=== PATIENT | male | born 1955 | race Caucasian/White ===

== ENCOUNTER 2017-08-16 10:03 | Outpatient (CLI) | payer OTHER | END 2017-08-16 10:04 | disposition home or self-care (01) | LOC: SC 10:03 | PROVIDERS: ATTEND Nurse Practitioner Family | DX: G47.33 Obstructive sleep apnea (adult) (pediatric) (principal) | CPT/HCPCS: 99212; 99214 ==

== ENCOUNTER 2017-11-22 13:33 | Outpatient (CLI) | payer OTHER | END 2017-11-22 13:34 | disposition home or self-care (01) | LOC: SC 13:33 | PROVIDERS: ATTEND Nurse Practitioner Family | DX: G47.33 Obstructive sleep apnea (adult) (pediatric) (principal) | CPT/HCPCS: 99212; 99214 ==

== ENCOUNTER 2023-09-02 10:53 | Outpatient (CLI) | payer OTHER ==
--- NOTE | 2023-09-02 11:37 | Sleep Patient Instructions ---
Sleep Center Visit Summary - Patient Visit Information Reason for Visit: Initial consultation - Patient Instructions Additional Instructions: You will continue with CPAP therapy with pressure set at 7 cmH2O. A supply prescription will be updated with your DME. We will have you do a sleep study if required by insurance. We encourage you to continue to try to lose weight. Please follow up with the sleep care office in 1 year. - Clinic Information Contact: [facility] [address] [place] [address] [email or web address] T: [phone]
--- NOTE | 2023-09-02 11:46 | SLEEP CARE CONSULTATION ---
Information from patient questionnaire entered by Anastasiya Ward. I have reviewed and concur with the information entered by Anastasiya Ward. This document represents the service I personally performed and the decisions made by me, Dior Gaviria ARNP. History of Present Illness Service Date and Time: 09/02/2023 1053 Reason for Visit: New patient, Previously diagnosed sleep apnea, Re-establish care Chief Complaint: reports: Other (UPDATE SUPPLIES) Date of Onset: 14YRS Usual bedtime: 2300 Time it takes to fall asleep: 5MINS Snores at night: Yes Observed to quit breathing while asleep: Yes Sleeps alone due to snoring: No Number of times waking at night: 2-3 Reasons for waking at night: reports: Bathroom Toss, Turn, or Twitch while sleeping: No Recalls having dreams: No Usually gets out of bed at: 5784-8374 Feels refreshed in the morning: Yes Morning headache: No Sleepy or fatigued during the day: No Ever fallen asleep while driving: No Takes day naps: No Dreams during day naps: No Prior sleep studies: Yes Additional HPI information: NIGHAT BUTT was last seen in 2017 and previously diagnosed in March 2008 to have moderate, AHI 16.5, obstructive sleep apnea-hypopnea syndrome and comes in today to re-establish care for CPAP therapy. He has been consistently using his CPAP with good compliance. He retired and changing to Medicare and the [employer] for his health needs. He needs an update of supply prescription and check up on his CPAP therapy. - Parasomnia Symptoms Ever been unable to move upon waking from sleep: No Walks in sleep: No Talks in sleep: No Ever acted out dreams in sleep: No Ever felt weak in the knees when startled or emotional: No Bothered by creepy, crawly, restless sensations in legs: No Problems with memory or concentration: No CPAP Compliance Data - Data Reviewed with Patient Average duration of nightly device use: 6 hours 5 mins Compliance rate %: 87.8 (83/90 days used) Current pressure setting (cmH2O): 7 Average residual AHI: 3.1 Central apnea: 0.1 Obstructive apnea: 1 Hypopnea: 2 Average large leak: 1 mins 26 secs Compliance data discussion: He has a Dreamstation 2 that was a replacement for the recalled device he had. [facility] He is using a nasal cushion mask. Subjective Missed days of use due to: reports: other (not sleeping in own bed when granddaughter visiting) Patient concerns: denies: aerophagia, mask discomfort, air blowing in eyes, mask leak noise, condensation in mask/hose, nasal congestion, dry mouth, nose, throat, epistaxis Observed to snore while using device: No Current pressure setting perceived as: comfortable On therapy, patient: reports: sleeping better, awakening more refreshed, being more awake and alert during the day, more rested overall. denies: drowsiness while driving Initial Honeydew Sleepiness Scale score: 7 (09/02/23) Past Medical History Past Medical History: reports: Hypertension, Arthritis, Asthma, Other (COPD) Social History The patient's occupation is a RE. Patient is and lives in [place]. Have you smoked in the past 12 months: No Alcohol use: Yes Alcohol amount and frequency: 2-3 BEERS WEEK Caffeine use: Yes Caffeine amount and frequency: 2-3 CUPS MORNING DAILY Family History Family history of sleep disordered breathing: Yes Family Hx Sleep Apnea: Father: Snoring, Sleep apnea - Untreated Allergies and Home Medications Known drug allergies: No Drug allergies reviewed: Yes Home medication list reviewed: Yes (as listed) Allergy and home medication list: Allergies No Known Drug Allergies Allergy (Verified 09/02/23 10:56) Home Medications Albuterol Sulfate See Rx Instructions .ROUTE .COMPLEX 09/02/23 [History] Cholecalciferol (Vitamin D3) [Vitamin D3] See Rx Instructions .ROUTE .COMPLEX 09/02/23 [History] Garlic See Rx Instructions .ROUTE .COMPLEX 09/02/23 [History] Lisinopril [Zestril] See Rx Instructions .ROUTE .COMPLEX 09/02/23 [History] Victor-3/Dha/Epa/Fish Oil [Fish Oil 1,000 mg Softgel] See Rx Instructions .ROUTE .COMPLEX 09/02/23 [History] Phytonadione (Vit K1) [Vitamin K] See Rx Instructions .ROUTE .COMPLEX 09/02/23 [History] Review of Systems Weight gain over past 5 years: 15 Cardiovascular: reports: high blood pressure Respiratory: reports: shortness of breath, wheeze Gastrointestinal: reports: heartburn Urinary: reports: frequency, urgency, impotence Ear/Nose/Throat: reports: sinus problems, tonsillectomy Musculoskeletal: reports: joint pain Immunologic: reports: sneezing Physical Exam Vital signs obtained and entered by: ANASTASIYA Mckeon MA Blood Pressure: 118/75 (RIGHT ARM) Cuff size: regular Heart Rate: 75 O2 Saturation: 97 Height: 5 ft 5 in Weight: 237 lb 12.8 oz Body Mass Index: 39.5 BMI Classification: Obese Neck circumference: 18.25 Heart: regular rate and rhythm Lungs: clear bilaterally Impression and Plan 1. Obstructive Sleep Apnea-Hypopnea Syndrome, moderate, with good treatment compliance and good apnea control. On CPAP therapy, the patient has better sleep quality and is more rested overall. He has significant improvement of his sleep apnea and is satisfied with current CPAP therapy. He may need a re-verifying diagnositic PSG if insurance requires it because his last sleep study was done back in 2007. He is willing to do the PSG if needed. I will update his supply prescription so he can obtain supplies as needed. Patient denies problems with oral dryness, nasal congestion, epistaxis, skin irritation or aerophagia. Patient's apnea severity and rationale for treatment to reduce apnea, improve sleep quality and reduce cardiovascular and cerebrovascular events was reviewed. I also reviewed the benefit of consistent device use of CPAP for hypertension and COPD. 2. Obesity, unspecified. Currently patients BMI is 39.5. Obesity increases the risk of apnea, CPAP pressure requirements and overall health risks especially cardiovascular and diabetes. Thus patient is advised to lose weight. * Continue auto CPAP pressure at 7 cmH2O * Update supply prescription * Verifying PSG if needed by insurance * Notify me if snoring with mask or feeling that the pressure is too much or too little * Attempt to lose weight * Call this office if any problems using CPAP * Return for follow up in 12 months (after study if needed), or sooner if concerns arise Counseling Topics: Spare mask, Weight loss health impact Prescriptions: Device supplies Follow up with Sleep Care in: 1 year Visit Type: In Office Time Spent with Patient (minutes): 36 Provider Statement: I spent 100% of the Face to Face Visit with the patient with greater than 50% spent counseling the patient and coordination of care.
[2023-09-02 11:51] VITALS: BP 118/75; O2SAT 97
== END 2023-09-02 10:54 | disposition home or self-care (01) ==
LOC: SC 10:53
PROVIDERS: ATTEND Nurse Practitioner Family
DX: G47.33 Obstructive sleep apnea (adult) (pediatric) (principal); I10 Essential (primary) hypertension
CPT/HCPCS: 99203; 99212

== ENCOUNTER 2023-12-17 08:00 | Outpatient (CLI) | payer MEDICARE, OTHER | END 2023-12-17 23:59 | disposition home or self-care (01) | LOC: LAB.N 08:00 | PROVIDERS: ATTEND Physician Assistant Medical | DX: N39.0 Urinary tract infection, site not specified (principal) | CPT/HCPCS: 87086; 87181 ==

== ENCOUNTER 2023-12-23 08:00 | Outpatient (CLI) | payer MEDICARE, OTHER ==
[2023-12-23 18:53] LABS: BILIRUBIN,URINE NEGATIVE (NEGATIVE); GLUCOSE, URINE (UA) NEGATIVE (NEGATIVE); KETONES,URINE (UA) NEGATIVE (NEGATIVE); LEUKOCYTE ESTERASE, URINE NEGATIVE (NEGATIVE); NITRITE,URINE NEGATIVE (NEGATIVE); OCCULT BLOOD,URINE NEGATIVE (NEGATIVE); PH,URINE 5.5 PH (5.0-7.5); PROTEIN,URINE NEGATIVE (NEGATIVE); UROBILINOGEN,URINE 0.2 (NORMAL) E.U./dL (NORMAL)
[2023-12-23 19:47] LABS: BACTERIA,URINE None Seen /HPF (None Seen); CLARITY,URINE CLEAR (CLEAR); RBC,URINE None Seen /HPF (0-5); SQUAMOUS EPITHELIAL CELL,UR RARE Squamous (<= Few); STARCH,URINE PRESENT; WBC,URINE 0-3 /HPF (0-3)
== END 2023-12-23 23:59 | disposition home or self-care (01) ==
LOC: LAB.WCP 08:00
PROVIDERS: ATTEND Family Medicine
DX: N39.0 Urinary tract infection, site not specified (principal)
CPT/HCPCS: 81001; 87086

== ENCOUNTER 2024-01-03 08:00 | Outpatient (CLI) | payer MEDICARE, OTHER | END 2024-01-03 23:59 | disposition home or self-care (01) | LOC: LAB.N 08:00 | PROVIDERS: ATTEND Nurse Practitioner | DX: R35.0 Frequency of micturition (principal) | CPT/HCPCS: 87086 ==

== ENCOUNTER 2024-01-04 09:16 | Outpatient (CLI) | payer MEDICARE, OTHER ==
[2024-01-04 18:25] LABS: BASOPHILS % (AUTO) 0.3 %; EOSINOPHILS % (AUTO) 0.6 %; HCT - HEMATOCRIT 39.4 % (42.0-52.0); HGB - HEMOGLOBIN 12.7 g/dL (14.0-18.0); LYMPHOCYTES % (AUTO) 9.3 %; MEAN CORPUSCULAR HEMOGLOBIN 30.8 pg (27.0-31.0); MEAN CORPUSCULAR HGB CONC 32.2 g/dL (32.0-36.0); MEAN CORPUSCULAR VOLUME 95.6 fL (80.0-94.0); MEAN PLATELET VOLUME 10.2 fL (7.4-11.4); NEUTROPHILS % (AUTO) 76.3 %; PLT - PLATELET COUNT 285 10^3/uL (130-450); RED BLOOD COUNT 4.12 10^6/uL (4.70-6.10); RED CELL DISTRIBUTION WIDTH 12.4 % (12.0-15.0); WHITE BLOOD COUNT 16.3 x10^3/uL (4.8-10.8)
[2024-01-04 18:34] LABS: ABNORMAL LYMPHS % (MANUAL) 0 %
[2024-01-04 18:48] LABS: ALBUMIN 3.9 g/dL (3.2-5.5); ALBUMIN/GLOBULIN RATIO 1.7 (1.0-2.2); ALKALINE PHOSPHATASE 64 IU/L (42-121); ALT ALANINE AMINOTRANSFERASE 17 IU/L (10-60); AST ASPARTATE AMINOTRANSFERASE 12 IU/L (10-42); BILIRUBIN,TOTAL 0.7 mg/dL (0.2-1.0); BUN - BLOOD UREA NITROGEN 12 mg/dL (6-20); CALCIUM 8.9 mg/dL (8.5-10.3); CARBON DIOXIDE - CO2 28 mmol/L (21-32); CHLORIDE 103 mmol/L (101-111); CHOL/HDL RATIO 3.1 (<5.0); CHOLESTEROL 151 mg/dL; CREATININE 0.9 mg/dL (0.6-1.3); GFR - MDRD 84 (>89); GLUCOSE 129 mg/dL (74-104); HDL CHOLESTEROL 49 mg/dL; LDL CHOLESTEROL,CALCULATED 89 mg/dL; LDL/HDL RATIO 1.8 (<3.6); POTASSIUM 4.1 mmol/L (3.5-4.5); SODIUM 136 mmol/L (135-145); TOTAL PROTEIN 6.2 g/dL (6.4-8.9); TRIGLYCERIDES 66 mg/dL; VLDL CHOLESTEROL 13 mg/dL
[2024-01-04 19:24] LABS: BAND NEUTROPHILS % (MANUAL) 7 %; DIFFERENTIAL COMMENT MANUAL DIFFERENTIAL; EOSINOPHILS # (MANUAL) 0.3 10^3/uL (0-0.7); LYMPHOCYTES # (MANUAL) 1.3 10^3/uL (1.5-3.5); LYMPHOCYTES % (MANUAL) 7 %; MONOCYTES # (MANUAL) 1.5 10^3/uL (0.0-1.0); NEUTROPHILS # (MANUAL) 13.2 10^3/uL (1.5-6.6); PLATELET ESTIMATE, MANUAL NORMAL (130-450,000) (NORMAL); PLATELET MORPHOLOGY NORMAL APPEARANCE (NORMAL); RBC MORPHOLOGY (MULTIPLE) NORMAL APPEARANCE (NORMAL); REACTIVE LYMPHS % (MANUAL) 1 %
[2024-01-04 21:43] LABS: ESTIMATED AVERAGE GLUCOSE 137 mg/dL (70-100); HEMOGLOBIN A1c% 6.4 % (4.27-6.07)
== END 2024-01-04 09:17 | disposition home or self-care (01) ==
LOC: LAB.N 09:16
PROVIDERS: ATTEND Physician Assistant
DX: I10 Essential (primary) hypertension (principal); R73.03 Prediabetes; Z12.5 Encounter for screening for malignant neoplasm of prostate
CPT/HCPCS: 36415; 80053; 80061; 83036; 85025; G0103; 83721; 84153